=== PATIENT | male | born 1950 | race Caucasian/White ===

== ENCOUNTER 2019-08-22 12:43 | Emergency (ER) | payer MEDICARE, OTHER ==
[~2019-08-22 12:43] MED LIST: Sodium Chloride Irrig Solution 250 ML BOT ONE
[2019-08-22] MEDS ORDERED: Lidocaine 2% w/Epinephrine 1:200K 20 ML VIAL ONE (13:13)
[2019-08-22] MEDS ORDERED: Bacitracin 1 PK ONE (13:44)
== END 2019-08-22 14:05 | disposition home or self-care (01) ==
LOC: MADERS 12:43
DX: S61.411A Laceration without foreign body of right hand, initial encounter (principal); S41.112A Laceration without foreign body of left upper arm, initial encounter; S41.132A Puncture wound without foreign body of left upper arm, initial encounter; I10 Essential (primary) hypertension; E78.5 Hyperlipidemia, unspecified; E11.9 Type 2 diabetes mellitus without complications; N40.0 Benign prostatic hyperplasia without lower urinary tract symptoms; I48.91 Unspecified atrial fibrillation; V89.2XXA Person injured in unspecified motor-vehicle accident, traffic, initial encounter
CPT/HCPCS: 12002

== ENCOUNTER 2021-08-13 11:07 | Emergency (ER) | payer MEDICARE, OTHER ==
[2021-08-13] MEDS ORDERED: Ondansetron ODT 4 MG TAB ONE (11:33)
[2021-08-13] MEDS ORDERED: HYDROcodone/Acetaminophen 10/325 mg Tablet ONE (12:10)
[2021-08-13] MEDS ORDERED: Cyclobenzaprine 10 MG TAB ONE (12:11)
== END 2021-08-13 12:27 | disposition home or self-care (01) ==
LOC: MADERS 11:07
DX: S41.112A Laceration without foreign body of left upper arm, initial encounter (principal); R00.1 Bradycardia, unspecified; I10 Essential (primary) hypertension; M62.838 Other muscle spasm; E78.5 Hyperlipidemia, unspecified; E11.9 Type 2 diabetes mellitus without complications; I48.91 Unspecified atrial fibrillation; Z79.01 Long term (current) use of anticoagulants; Z79.899 Other long term (current) drug therapy; W17.89XA Other fall from one level to another, initial encounter
CPT/HCPCS: Q0162